=== PATIENT | male | born 1975 | race Caucasian/White ===

== ENCOUNTER 2024-05-25 11:55 | Outpatient (AMB) | payer OTHER, MEDICAID, SELFPAY ==
--- NOTE | 2024-05-25 11:57 | MHC.PC.OV ---
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 Needs referral to neurologist so he can get his license back. 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 ?? Prior PCP:?Dr Perez Last office visit/CPE:? > 1 yr Acute issue(s):? TBI x7 and h/o seizures. Had a neurologist Dr Russell. No seizure in past 3 yrs ?? PMHx:? TBI, Seizures. Amblyopia, Vision deficits, Asthma, Bradycardia, GERD SurgHx:? Eye muscle surgeries. Andenoids. R knee arthroscopy. L knee surgery. FHx:? Mom: HypoThyroid, Arrythmia, Asthma. Dad: HLD, DM2. GF: Colon CA. GM: Throat CA SocHx:? Nonsmoker. EtOH: Rarely 1 drink. MJ Daily. PFSH Surgical History (Updated 05/25/24 @ 12:38 by Boogie Winters) History of right knee surgery Family History (Updated 05/25/24 @ 12:24 by Maria Ines Terrell CMA) Other FH: mental illness Substance use Social History (Updated 05/25/24 @ 12:06 by Maria Ines Terrell CMA) Housing: House Patient Tobacco Use Status: Never used Tobacco e-Cigarette/Vaping Use: Never Used Second Hand Smoke Exposure: No Substance Use Type: Marijuana service: No Current occupational status: disabled Cognitive needs: Yes (had seven brain injuries) Hearing needs: No Vision needs: Yes (legally blind in right eye) Questionnaire PHQ-9 Over the last 2 weeks, how often have you been bothered by any of the following problems? 1. Little interest or pleasure in doing things: not at all 2. Feeling down, depressed, or hopeless: several days 3. Trouble falling or staying asleep, or sleeping too much: not at all 4. Feeling tired or having little energy: several days 5. Poor appetite or overeating: several days 6. Feeling bad about yourself - or that you are a failure or have let yourself or your family down: not at all 7. Trouble concentrating on things, such as reading the newspaper or watching television: not at all 8. Moving or speaking so slowly that other people could have noticed. Or the opposite - being so fidgety or restless that you have been moving around a lot more than usual: not at all 9. Thoughts that you would be better off or of hurting yourself in some way: not at all Total score: 3 Depression Screening Interpretation: Positive Depression Screening Done: Yes 06494 - PHQ-9 Billing: Yes Source: Developed by Drs. Wilfrid Easton, Maria M Rodriges, Mynor Bautista and colleagues, with an educational asaf from [employer]. Thrive Questionnaire Date Thrive assessed: 05/25/24 I am a: Patient What is your living situation today?: I have a steady place to live Within the past 12 months, did the food you bought not last and you didn't have the money to get more?: Never true Within the past 12 months, did you worry whether your food would run out before you got money to buy more?: Never true Do you have trouble paying for medicines?: No Do you have trouble getting transportation to medical appointments?: No Do you have trouble paying your heating and electricity bill?: No Do you have trouble taking care of your child, family member or friend?: No Do you have trouble with day-to-day activities such as bathing, preparing meals, shopping, managing finances, etc.?: No Are you currently unemployed and looking for a job?: No Are you interested in more education?: No Please select the resources that you would like help with: None Currently or been in a relationship where the following occur: No concerns reported THRIVE Score: 0 AUDIT C Alcohol Use Questionnaire (AUDIT-C) 1. How often do you have a drink containing alcohol?: Monthly or less 2. How many drinks containing alcohol do you have on a typical day when you are drinking?: 1 or 2 3. How often do you have six or more drinks on one occasion?: Never Total Score: 1 BRY-7 AMB Questionnaire BRY-7 Date BRY - 7 assessed: 05/25/24 Feeling nervous, anxious, or on edge: 1 = Several days Not being able to stop or control worryin = Not at all Worrying too much about different things: 1 = Several days Trouble relaxin = Several days Being so restless that it is hard to sit still: 0 = Not at all Becoming easily annoyed or irritable: 1 = Several days Feeling afraid as if something awful might happen: 0 = Not at all Total BRY-7 score (0-4 normal; 5-9 mild; 10-14 moderate; 15-21 severe): 4 Source: Developed by Drs. Wilfrid Easton, Maria M Rodriges, Mynor Bautista and colleagues, with an educational asaf from [employer]. BRY-7 Assessment Billing BRY-7 Assessment Tool: BRY-7 Assessment 75180 Review of Systems Const Denies chills, Denies fatigue, Denies fever(s), Denies headache(s) and Denies weakness ENT Denies dizziness and Denies headache(s) Card Denies chest pain, Denies lightheadedness, Denies dyspnea and Denies other (Palpitations) Resp Denies cough, Denies dyspnea, Denies wheezing and Denies other ( shortness of breath) Musc Denies numbness and Denies tingling Neuro Denies dizziness, Denies headache(s), Denies numbness, Denies tingling, Denies paresthesias and Denies weakness Psych Denies anxiety and Denies depression Endo Denies fatigue Aller/Immun Denies wheezing Physical exam (Primary Care) Vital Signs: Last Vital Signs Temp 98.1 F 05/25/24 12:07 Pulse 50 05/25/24 12:07 Resp 14 05/25/24 12:07 BP 112/78 05/25/24 12:07 Pulse Ox 98 05/25/24 12:07 Oxygen Delivery Method Room Air 05/25/24 12:07 BMI result Body Mass Index 30.6 Tobacco/Smoking Status: Tobacco use Status Tobacco use date assessed 05/25/24 05/25/24 12:10 Patient Tobacco Use Status Never used Tobacco 05/25/24 12:10 e-Cigarette/Vaping Use Never Used 05/25/24 12:10 PHQ-9: PHQ-9 Score PHQ-9: Total score 3 05/25/24 12:23 Depression Screening Interpretation: Positive Thrive Assessment: Date of Thrive Assessment Date Thrive assessed 05/25/24 05/25/24 12:23 Currently or been in a relationship where the following occur: No concerns reported Const General: no acute distress and well developed Nutritional Appearance: well nourished Orientation/consciousness: patient oriented x3 HENMT Head: Yes normocephalic and Yes atraumatic Eyes General: appearance normal, both eyes and all related structures Pupils: Equal, round and reactive pupils present EOM: EOMs intact bilaterally Resp Effort & Inspection: normal respiratory effort Auscultation: clear to auscultation bilaterally Cardio Rate: regular rate Rhythm: regular rhythm Heart sounds: S1 normal heart sound present, S2 normal heart sound present, no gallops, no murmurs and no rubs Neuro General: patient oriented x3 and gait normal Cranial nerves: Yes Equal, round and reactive pupils present Psych Affect: normal affect Assessment and Plan Assessment & Plan (1) Seizures: Code(s): R56.9 - Unspecified convulsions Plan: History?of?traumatic?brain?injury?and?seizures. 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 (2) History of traumatic brain injury: Code(s): Z87.820 - Personal history of traumatic brain injury Plan: As?above (3) GERD (gastroesophageal reflux disease): Code(s): K21.9 - Gastro-esophageal reflux disease without esophagitis Plan: Refilled?omeprazole Referred?to?Gastroenterology (4) Asthma: Code(s): J45.909 - Unspecified asthma, uncomplicated Plan: Mild?intermittent?asthma Sent?script?for?Ventolin?which?he?can?use?as?needed (5) Screening for colon cancer: Code(s): Z12.11 - Encounter for screening for malignant neoplasm of colon Plan: As?above,?referred?to?GI (6) Laboratory exam ordered as part of routine general medical examination: Code(s): Z00.00 - Encounter for general adult medical examination without abnormal findings Plan: Check?labs Orders: Orders Comprehensive Walker. Panel Fast Today Z00.00 - Encounter for general adult medical examination without abnormal findings Microalbumin, Random (w Creat) Today I10 - Essential (primary) hypertension Prostate Specific Antigen Scr Today Z12.5 - Encounter for screening for malignant neoplasm of prostate TSH reflex Free T4 Today Z00.00 - Encounter for general adult medical examination without abnormal findings Complete Blood Count Auto Diff Today Z00.00 - Encounter for general adult medical examination without abnormal findings Lipid Panel Today Z00.00 - Encounter for general adult medical examination without abnormal findings UA and rflx microscopic Today Z00.00 - Encounter for general adult medical examination without abnormal findings Vitamin B12 and Folate Today E53.8 - Deficiency of other specified B group vitamins Referrals Neurology Referral R56.9 - Unspecified convulsions Gastroenterology Referral K21.9 - Gastro-esophageal reflux disease without esophagitis, Z12.11 - Encounter for screening for malignant neoplasm of colon Medications: New albuterol sulfate 90 mcg/actuation (Ventolin HFA) 2 puffs inhalation Q4-6H 30 days PRN 8.5 grams 3RF shortness of breath or wheezing omeprazole 20 mg PO DAILY 90 days 90 caps 3RF Coding Level of Care Code New Pt Level 3 (67589) Diagnoses Seizures R56.9 History of traumatic brain injury Z87.820 GERD (gastroesophageal reflux disease) K21.9 Asthma J45.909 Screening for colon cancer Z12.11 Laboratory exam ordered as part of routine general medical examination Z00.00 Additional Codes BRY-7 Assessment Billing - BRY-7 Assessment Tool: BRY-7 Assessment 38956 ([id number])
[2024-05-25 12:07] VITALS: BP 112/78; PULSE 50; RESP 14; TEMP 36.7; O2SAT 98; BMI 30.6
== END 2024-05-25 12:47 | disposition home or self-care (01) ==
PROVIDERS: PCP Family Medicine; Visit Provider Family Medicine
DX: R56.9 Unspecified convulsions (principal); Z87.820 Personal history of traumatic brain injury; K21.9 Gastro-esophageal reflux disease without esophagitis; J45.909 Unspecified asthma, uncomplicated; Z12.11 Encounter for screening for malignant neoplasm of colon
CPT/HCPCS: 99203

== ENCOUNTER 2024-05-25 12:50 | Outpatient (REF) | payer OTHER, MEDICAID, SELFPAY ==
[2024-05-25 14:03] LABS: MANUAL DIFF FLAG NO
[2024-05-25 14:07] LABS: Appearance Urine Clear; Basophils Percent Auto 0.3 % (0-2); Color Urine Yellow; Eosinophils Absolute Auto 0.1 X10*3/uL (0.0-0.4); Eosinophils Percent Auto 2.4 % (0-4); Glucose Urine UA Negative (Negative); Hematocrit 44.6 % (42.0-52.0); Hemoglobin 15.4 g/dl (14.0-18.0); Imm Gran Abs Auto 0.01 X10*3/uL (0.00-0.03); Imm Gran Pct Auto 0.3 % (0.0-0.4); Leukocyte Esterase Urine Negative (Negative); Lymphocytes Percent Auto 25.1 % (20-40); Mean Corpuscular HGB Conc 34.5 g/dl (31.0-36.0); Mean Corpuscular Volume 92.7 fL (80.0-98.0); Mean Platelet Volume 10.9 fL (9.4-12.4); Monocytes Absolute Auto 0.4 X10*3/uL (0.1-1.2); Monocytes Percent Auto 10.3 % (2-11); Neutrophils Absolute Auto 2.3 x10*3/uL (2.0-8.3); Neutrophils Percent Auto 61.6 % (45-73); Nitrite Urine Negative (Negative); Platelet Count 248 X10*3/uL (160-400); Red Blood Count 4.81 X10*6/uL (4.60-5.80); Red Cell Distribution Width 12.7 % (11.0-16.0); Specific Gravity - Urine 1.025 (1.005-1.025); Urine Blood Negative (Negative); Urine Ketones Negative (Negative); Urine Protein Negative (Neg-Trace); White Blood Count 3.8 X10*3/uL (4.8-10.8)
[2024-05-25 14:36] LABS: Creatinine Urine 253.05 mg/dL; Microalbum/Creatinine Ratio Ur 3.1 ug/mg cr (<30)
[2024-05-25 14:42] LABS: Alanine Aminotransferase 22 U/L (0-40); Albumin Level 4.6 g/dL (3.5-5.0); Alkaline Phosphatase 62 U/L (39-117); Anion Gap 17 (12-20); Aspartate Amino Transferase 18 U/L (5-37); Bilirubin Total 1.2 mg/dL (0.0-1.0); Blood Urea Nitrogen 15 mg/dL (9-16); Calcium 9.6 mg/dL (8.4-10.2); Carbon Dioxide 21 mmol/L (22-29); Chloride 106 mmol/L (96-108); Cholesterol 155 mg/dL (<200); Estimated Glomerular Filt Rate > 60; Glucose Fasting 101 mg/dL (60-99); HDL Cholesterol 38 mg/dL (>40); LDL Cholesterol Calculated 105 mg/dL (<100); Potassium 3.8 mmol/L (3.3-5.1); Sodium 140 mmol/L (135-145); Total Protein 8.1 g/dL (6.5-8.0); Triglycerides 62 mg/dL (<150)
[2024-05-25 14:51] LABS: TSH reflex Free T4 0.79 uIU/mL (0.32-4.0)
[2024-05-25 15:05] LABS: Folate 5.4 ng/mL (> or = 4.0); Prostate Specific Antigen Scr 0.94 ng/mL (<0.05-4.0); Vitamin B12 424 pg/mL (200-900)
== END 2024-05-25 12:51 | disposition home or self-care (01) ==
LOC: HO.WFDLDS 12:50
PROVIDERS: Visit Provider Family Medicine
DX: Z00.00 Encounter for general adult medical examination without abnormal findings (principal); I10 Essential (primary) hypertension; E53.8 Deficiency of other specified B group vitamins; Z12.5 Encounter for screening for malignant neoplasm of prostate
CPT/HCPCS: 36415; 80053; 80061; 81003; 82043; 82570; 82607; 82746; 84153; 84443; 85025

== ENCOUNTER 2024-09-02 10:40 | Outpatient (AMB) | payer OTHER, MEDICAID, SELFPAY ==
--- NOTE | 2024-09-02 10:47 | MHC.PC.OV ---
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 30 mins Intake Note: Physical Allergies pneumococcal vaccine Allergy (Verified 09/02/24 10:48) Cystitis Tobacco use date assessed: 05/25/24 Dental Screening Dental Screen Date: 05/25/24 HPI HPI Comments History of Present Illness Details This is a 48-year-old male with a past medical history of TBI and seizures presenting for his physical exam. His primary care provider is Dr. Moar. Dr. Mora referred him to Neurology in May. There are messages that Dr. Ardon reviewed the request, and since he has not had a seizure in over 3 years he does not need to be seen. Dr. Mora wrote that with the notes on this from Neurology he would be able to consider clearing him to drive. The patient is going to obtain the form from the [employer] and schedule a visit with his primary care physician to review it. Patient says last tetanus immunization was over 10 years. Administered Tdap and influenza vaccine today. Patient reports developing cellulitis after pneumococcal vaccine in the past. He will get the COVID booster at his pharmacy. He has an appointment scheduled for colonoscopy. Patient's heart rate is 50 today which is stable from his last visit. Patient says he has chronic bradycardia, and he had multiple Holter monitors with benign findings. Denies syncope, palpitations, dizziness, fatigue. Records transfer still pending. We reviewed his lab work from 05/22/2024. White blood cell count was mildly decreased. He will repeat this today. ROS: Constitutional: No unexplained weight loss, fever, chills, fatigue or night sweats. Eyes: No vision changes, blurry vision, double vision, eye pain, eye redness, eye discharge. ENT: No hearing loss, sneezing, congestion, runny nose or sore throat. Respiratory: No shortness of breath, cough or sputum production. Cardiovascular: No chest pain, chest pressure or chest discomfort. No palpitations or pedal edema. Gastrointestinal: No anorexia, nausea, vomiting or diarrhea. No abdominal pain or blood in stool. Genitourinary: No dysuria, hematuria, urinary frequency. No testicular masses, scrotal pain or swelling. Neurologic: No headache, dizziness, syncope, unilateral weakness, ataxia, numbness or tingling in the extremities. Musculoskeletal: No muscle pain, back pain, joint pain or swelling. Hematologic/Lymphatics: No bleeding or bruising. No painful lymph nodes. Skin: No rash or itching. Endocrine: No cold or heat intolerance. No polyuria or polydipsia. Psychiatric: No depression or anxiety. No SI/HI. Physical exam: Constitutional: Alert, in no distress. Head: Normocephalic. Eyes: Pupils are equal, round and reactive to light. Extraocular muscles intact. Ear, Nose and Throat: Canals clear. TMs normal. Normal nasal mucosa. No nasal discharge. No oral lesions. Neck: Supple, Full range of motion. No lymphadenopathy. No palpable thyroid masses. Respiratory: Clear to auscultation. Cardiovascular: S1 S2 regular. No murmurs. No carotid bruits. Gastrointestinal: Abdomen soft, non-tender, non-distended. Normal bowel sounds. No palpable masses. Genitourinary: Deferred. Neurologic: No focal neurological deficits. Symmetric patellar reflexes. Moves all extremities spontaneously. Sensation intact bilaterally. Skin: No rashes Musculoskeletal: No gross deformities. Normal range of motion. Extremities: Warm and well perfused. No clubbing, cyanosis or edema. 3+ peripheral pulses bilaterally. Psychiatric: Normal mood and affect COUNTS INCLUDE 234 BEDS AT [facility] Medical History (Updated 09/02/24 @ 11:41 by CASTRO Valladares) Bradycardia Surgical History (Updated 05/25/24 @ 12:38 by Boogie Winters) History of right knee surgery Family History (Updated 05/25/24 @ 12:24 by Maria Ines Terrell CMA) Other FH: mental illness Substance use Social History (Updated 09/02/24 @ 10:48 by Maria Ines Terrell CMA) Housing: House Patient Tobacco Use Status: Never used Tobacco e-Cigarette/Vaping Use: Never Used Second Hand Smoke Exposure: No Use of substances other than those prescribed or required for medical reasons: Yes Substance Use Type: Marijuana service: No Current occupational status: disabled Cognitive needs: Yes (had seven brain injuries) Hearing needs: No Vision needs: Yes (legally blind in right eye) Questionnaire PHQ-9 Over the last 2 weeks, how often have you been bothered by any of the following problems? 1. Little interest or pleasure in doing things: not at all 2. Feeling down, depressed, or hopeless: not at all 3. Trouble falling or staying asleep, or sleeping too much: several days 4. Feeling tired or having little energy: several days 5. Poor appetite or overeating: several days 6. Feeling bad about yourself - or that you are a failure or have let yourself or your family down: not at all 7. Trouble concentrating on things, such as reading the newspaper or watching television: not at all 8. Moving or speaking so slowly that other people could have noticed. Or the opposite - being so fidgety or restless that you have been moving around a lot more than usual: not at all 9. Thoughts that you would be better off or of hurting yourself in some way: not at all Total score: 3 Depression Screening Interpretation: Negative Depression Screening Done: Yes 54427 - PHQ-9 Billing: Yes Source: Developed by Drs. Wilfrid Easton, Maria M Rodriges, Mynor Bautista and colleagues, with an educational asaf from [employer]. Thrive Questionnaire Date Thrive assessed: 09/02/24 I am a: Patient What is your living situation today?: I have a steady place to live Within the past 12 months, did the food you bought not last and you didn't have the money to get more?: Never true Within the past 12 months, did you worry whether your food would run out before you got money to buy more?: Never true Do you have trouble paying for medicines?: Yes Do you have trouble getting transportation to medical appointments?: No Do you have trouble paying your heating and electricity bill?: No Do you have trouble taking care of your child, family member or friend?: No Do you have trouble with day-to-day activities such as bathing, preparing meals, shopping, managing finances, etc.?: No Are you currently unemployed and looking for a job?: No Are you interested in more education?: No Please select the resources that you would like help with: None Currently or been in a relationship where the following occur: No concerns reported THRIVE Score: 0 AUDIT C Alcohol Use Questionnaire (AUDIT-C) 1. How often do you have a drink containing alcohol?: Monthly or less 2. How many drinks containing alcohol do you have on a typical day when you are drinking?: 1 or 2 3. How often do you have six or more drinks on one occasion?: Never Total Score: 1 BRY-7 AMB Questionnaire BRY-7 Date BRY - 7 assessed: 05/25/24 Feeling nervous, anxious, or on edge: 1 = Several days Not being able to stop or control worryin = Not at all Worrying too much about different things: 0 = Not at all Trouble relaxin = Several days Being so restless that it is hard to sit still: 1 = Several days Becoming easily annoyed or irritable: 0 = Not at all Feeling afraid as if something awful might happen: 0 = Not at all Total BRY-7 score (0-4 normal; 5-9 mild; 10-14 moderate; 15-21 severe): 3 Source: Developed by Drs. Wilfrid Easton, Maria M Rodriges, Mynor Bautista and colleagues, with an educational asaf from [employer]. BRY-7 Assessment Billing BRY-7 Assessment Tool: BRY-7 Assessment 86946 Physical exam (Primary Care) Vital Signs: Last Vital Signs Pulse 50 09/02/24 11:36 Resp 12 09/02/24 10:48 BP 122/74 09/02/24 10:48 Pulse Ox 97 09/02/24 10:48 Oxygen Delivery Method Room Air 09/02/24 10:48 BMI result Body Mass Index 31.2 Tobacco/Smoking Status: Tobacco use Status Tobacco use date assessed 05/25/24 09/02/24 10:51 Patient Tobacco Use Status Never used Tobacco 09/02/24 10:51 e-Cigarette/Vaping Use Never Used 09/02/24 10:51 PHQ-9: PHQ-9 Score PHQ-9: Total score 3 09/02/24 11:26 Depression Screening Interpretation: Negative Thrive Assessment: Date of Thrive Assessment Date Thrive assessed 09/02/24 09/02/24 10:51 Currently or been in a relationship where the following occur: No concerns reported Coding Level of Care Code Est Pt Prev Care 40-64y(22706) Diagnoses Routine physical examination Z00.00 Additional Codes BRY-7 Assessment Billing - BRY-7 Assessment Tool: BRY-7 Assessment 96970 ([id number]) Assessment & Plan Assessment & Plan (1) Routine physical examination: Code(s): Z00.00 - Encounter for general adult medical examination without abnormal findings Plan: Patient is seen today for a routine physical. As part of this visit we reviewed the following issues, which are considered and essential part of preventative health in this age group: - Testicular cancer screening, which includes self exam teaching - Screening for colon cancer - Discussed Prostate cancer screening - Blood pressure screening annually - Cholesterol screening - Nutritional and exercise counseling - Counseling of injury prevention including fire prevention, smoke alarms and seat belt usage - Screening for depression - Prevention of and/or testing for infectious diseases - Education about skin cancer - Recommendations about immunizations - Recommendation of an eye exam - Screening for substance abuse Plan Patient will call to schedule follow up with PCP for form completion. Orders: Orders Complete Blood Count Auto Diff Today D72.819 - Decreased white blood cell count, unspecified Influenza [id number] Immunization Today Z23 - Encounter for immunization TDaP Immunization Today Z23 - Encounter for immunization Medications: New Fluarix Triv [id number] (PF) (flu vacc [id number] 6mos up(PF)) 0.5 mL IM ONCE 0.5 mL 0RF NS Z23 - Encounter for immunization Boostrix Tdap (diphth,pertus(acell),tetanus) 0.5 mL IM ONCE 0.5 mL 0RF NS Z23 - Encounter for immunization
[2024-09-02 10:48] VITALS: BP 122/74; PULSE 49; RESP 12; O2SAT 97; BMI 31.2
[2024-09-02 11:36] VITALS: PULSE 50
== END 2024-09-02 12:02 | disposition home or self-care (01) ==
LOC: HO.HMCFM 10:40
PROVIDERS: PCP Family Medicine; Visit Provider Physician Assistant Medical
DX: Z00.00 Encounter for general adult medical examination without abnormal findings (principal); Z23 Encounter for immunization

== ENCOUNTER → 2024-09-02 10:40 | Outpatient (BNVA) | payer OTHER, MEDICAID, SELFPAY | PROVIDERS: PCP Family Medicine; Visit Provider Physician Assistant Medical | DX: Z00.00 Encounter for general adult medical examination without abnormal findings (principal); Z23 Encounter for immunization; Z87.820 Personal history of traumatic brain injury | CPT/HCPCS: 90471; 90656; 90715; 96127; 99396 ==

== ENCOUNTER 2025-07-29 08:42 | Outpatient (AMB) | payer OTHER, MEDICAID, SELFPAY ==
--- NOTE | 2025-07-29 08:50 | A.OFFPC_ITS ---
Vital Signs 07/29/25 08:53 Height 5 ft 5.94 in Weight 138 lb 6 oz BMI 22.4 BP 122/76 Blood Pressure Location Rt brachial Position Sitting Respiration 14 Pulse 57 Pulse Source Pulse Oximeter Temp 98.5 F Temp Source Oral Pulse Oximetry (%) 97 Oxygen Delivery Method Room Air Intake Visit Reasons: Back Pain Intake Note: Lower back pain. Slide Developer Required: No Allergies pneumococcal vaccine Allergy (Verified 07/29/25 08:51) Cystitis Tobacco use date assessed: 07/29/25 Dental Screening Dental Screen Date: 07/29/25 Did you have a dental visit in the last 12 months?: No Did you have a dental problem in the last 6 months where you did not have access to dental care?: No Was dental information given to patient?: Patient declined (has false teeth) HPI Back Pain HPI Details 49 y/o male presents today with complain ts of back pain. Reports low back pain. Radiates to buttocks and lateral hips bilaterally. Notes hx of seizures. HPI Comments History of Present Illness Details Documentation assistance for Marin Mora MD, was provided by Boogie Winters, [employer] on 07/29/2025 at 9:32 AM EST. I, Dr. Mora, have read, observed, and verified documentation. 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 1. Little interest or pleasure in doing things: not at all 2. Feeling down, depressed, or hopeless: not at all 3. Trouble falling or staying asleep, or sleeping too much: not at all 4. Feeling tired or having little energy: not at all 5. Poor appetite or overeating: not at all 6. Feeling bad about yourself - or that you are a failure or have let yourself or your family down: not at all 7. Trouble concentrating on things, such as reading the newspaper or watching television: not at all 8. Moving or speaking so slowly that other people could have noticed. Or the opposite - being so fidgety or restless that you have been moving around a lot more than usual: not at all 9. Thoughts that you would be better off or of hurting yourself in some way: not at all Total score: 0 Depression Screening Interpretation: Negative Depression Screening Done: Yes 19948 - PHQ-9 Billing: Yes Source: Developed by Drs. Wilfrid Easton, Maria M Rodriges, Mynor Bautista and colleagues, with an educational asaf from [employer] Thrive Questionnaire Date Thrive assessed: 07/29/25 I am a: Patient What is your living situation today?: I have a steady place to live Within the past 12 months, did the food you bought not last and you didn't have the money to get more?: Often true Within the past 12 months, did you worry whether your food would run out before you got money to buy more?: Often true Do you have trouble paying for medicines?: Yes Do you have trouble getting transportation to medical appointments?: Yes Do you have trouble paying your heating and electricity bill?: No Do you have trouble taking care of your child, family member or friend?: No Do you have trouble with day-to-day activities such as bathing, preparing meals, shopping, managing finances, etc.?: No Are you currently unemployed and looking for a job?: No Are you interested in more education?: No Please select the resources that you would like help with: None Currently or been in a relationship where the following occur: I choose not to answer THRIVE Score: 3 AUDIT C Alcohol Use Questionnaire (AUDIT-C) 1. How often do you have a drink containing alcohol?: Monthly or less 2. How many drinks containing alcohol do you have on a typical day when you are drinking?: 1 or 2 3. How often do you have six or more drinks on one occasion?: Never Total Score: 1 BRY-7 AMB Questionnaire BRY-7 Date BRY - 7 assessed: 07/29/25 Feeling nervous, anxious, or on edge: 0 = Not at all Not being able to stop or control worryin = Not at all Worrying too much about different things: 0 = Not at all Trouble relaxin = Not at all Being so restless that it is hard to sit still: 0 = Not at all Becoming easily annoyed or irritable: 0 = Not at all Feeling afraid as if something awful might happen: 0 = Not at all Total BRY-7 score (0-4 normal; 5-9 mild; 10-14 moderate; 15-21 severe): 0 Source: Developed by Drs. Wlifrid Easton, Maria M Rodriges, Mynor Bautista and colleagues, with an educational asaf from [employer] BRY-7 Assessment Billing BRY-7 Assessment Tool: BRY-7 Assessment 58077 Review of Systems Const Denies chills, Denies fatigue, Denies fever(s), Denies headache(s) and Denies weakness ENT Denies dizziness and Denies headache(s) Card Denies dyspnea Resp Denies cough, Denies dyspnea, Denies wheezing and Denies other (shortness of breath) Musc Reports back pain, Denies numbness and Denies tingling Neuro Denies dizziness, Denies headache(s), Denies numbness, Denies tingling and Denies weakness Psych Denies anxiety and Denies depression Endo Denies fatigue Aller/Immun Denies wheezing Physical exam (Primary Care) Vital Signs: Last Vital Signs Temp 98.5 F 07/29/25 08:53 Pulse 57 07/29/25 08:53 Resp 14 07/29/25 08:53 BP 122/76 07/29/25 08:53 Pulse Ox 97 07/29/25 08:53 Oxygen Delivery Method Room Air 07/29/25 08:53 BMI result Body Mass Index 22.4 Tobacco/Smoking Status: Tobacco use Status Tobacco use date assessed 07/29/25 07/29/25 08:55 Patient Tobacco Use Status Never used Tobacco 07/29/25 08:55 e-Cigarette/Vaping Use Never Used 07/29/25 08:55 PHQ-9: PHQ-9 Score PHQ-9: Total score 0 07/29/25 08:55 Depression Screening Interpretation: Negative Thrive Assessment: Date of Thrive Assessment Date Thrive assessed 07/29/25 07/29/25 08:55 Currently or been in a relationship where the following occur: I choose not to answer Const General: well developed; No acute distress Nutritional Appearance: well nourished Orientation/consciousness: patient oriented x3 HENMT Head: Yes normocephalic and Yes atraumatic Eyes General: appearance normal, both eyes and all related structures Pupils: Equal, round and reactive pupils present EOM: EOMs intact bilaterally Resp Effort & Inspection: normal respiratory effort Neuro General: patient oriented x3 and gait normal Cranial nerves: Yes Equal, round and reactive pupils present Psych Affect: normal affect Coding Level of Care Code Est Pt Level 3 (89370) Diagnoses Low back pain M54.50 Seizures R56.9 Additional Codes BRY-7 Assessment Billing - BRY-7 Assessment Tool: BRY-7 Assessment 45244 ([id number]) PHQ-9 - 18435 - PHQ-9 Billing: Yes ([id number]) Assessment & Plan Assessment & Plan (1) Low back pain: Code(s): M54.50 - Low back pain, unspecified Category: Medical Plan: Low back pain which radiates into buttocks and lateral hips, bilaterally. Likely recurrent muscle strains. Will give him a script for cyclobenzaprine and he can increase naproxen to about 440 mg b.i.d.. Ice/heat Physical therapy If not improving will consider imaging or referral (2) Seizures: Code(s): R56.9 - Unspecified convulsions Category: Medical Plan: History of seizures and was followed by Dr. Rodrigo Giang, neurology. He would like a referral to discuss re-evaluation. He is trying to get his license back. Orders: Referrals Neurology Referral R56.9 - Unspecified convulsions, Z87.820 - Personal history of traumatic brain injury
[2025-07-29 08:53] VITALS: BP 122/76; PULSE 57; RESP 14; TEMP 36.9; O2SAT 97; BMI 22.4
== END 2025-07-29 09:32 | disposition home or self-care (01) ==
LOC: HO.HMCFM 08:43
PROVIDERS: PCP Family Medicine; Visit Provider Family Medicine
DX: M54.50 Low back pain, unspecified (principal); R56.9 Unspecified convulsions

== ENCOUNTER → 2025-07-29 08:42 | Outpatient (BNVA) | payer OTHER, SELFPAY | PROVIDERS: PCP Family Medicine; Visit Provider Family Medicine | DX: M54.50 Low back pain, unspecified (principal); R56.9 Unspecified convulsions; Z87.820 Personal history of traumatic brain injury | CPT/HCPCS: 96127; 99212 ==

== ENCOUNTER 2025-09-05 08:46 | Outpatient (AMB) | payer OTHER, MEDICAID, SELFPAY ==
--- NOTE | 2025-09-05 08:49 | A.OFFPC_ITS ---
Vital Signs 09/05/25 08:55 Height 5 ft 5.94 in Weight 198 lb 8 oz BMI 32.1 BP 110/80 Blood Pressure Location Rt brachial Position Sitting Respiration 16 Pulse 57 Pulse Source Pulse Oximeter Temp 98.5 F Temp Source Oral Pulse Oximetry (%) 97 Oxygen Delivery Method Room Air Intake Visit Reasons: physical exam Intake Note: patient is scheduled for an annual physical patient was unable to complete labs will get them done after visit today. 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 Allergies pneumococcal vaccine Allergy (Verified 09/05/25 08:52) Cystitis Medication List - Last Reconciled 09/05/25 by Marin Mora MD albuterol sulfate 90 mcg/actuation (Ventolin HFA) 2 puffs inhalation Q4-6H PRN 30 days cyclobenzaprine 10 mg PO BID PRN 10 days omeprazole 20 mg PO DAILY 90 days Tobacco use date assessed: 09/05/25 Dental Screening Dental Screen Date: 09/05/25 Did you have a dental visit in the last 12 months?: No Did you have a dental problem in the last 6 months where you did not have access to dental care?: No Was dental information given to patient?: No HPI physical exam HPI0 Details 49 y/o male presents for a CPE with f/u labs and health maint. No recent labs to review. Denies any significant weight changes. Pt notes 07/29/25 visit's weight check is a mistake - it is listed 138 lbs but he is 198 lbs. Reports he has been using NSAIDs and tylenol for pain from arthritis. HPI Comments History of Present Illness Details Documentation assistance for Marin Mora MD, was provided by Boogie Winters, [employer] on 09/05/2025 at 9:08 AM EST. [place], Dr. Mora, have read, observed, and verified documentation. 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 1. Little interest or pleasure in doing things: not at all 2. Feeling down, depressed, or hopeless: several days 3. Trouble falling or staying asleep, or sleeping too much: not at all 4. Feeling tired or having little energy: not at all 5. Poor appetite or overeating: not at all 6. Feeling bad about yourself - or that you are a failure or have let yourself or your family down: not at all 7. Trouble concentrating on things, such as reading the newspaper or watching television: not at all 8. Moving or speaking so slowly that other people could have noticed. Or the opposite - being so fidgety or restless that you have been moving around a lot more than usual: nearly every day 9. Thoughts that you would be better off or of hurting yourself in some way: not at all Total score: 4 Depression Screening Interpretation: Negative Depression Screening Done: Yes 49560 - PHQ-9 Billing: Yes Source: Developed by Drs. Wilfrid Easton, Maria M Rodriges, Mynor Bautista and colleagues, with an educational asaf from [employer]. Thrive Questionnaire Date Thrive assessed: 09/05/25 I am a: Patient What is your living situation today?: I have a steady place to live Within the past 12 months, did the food you bought not last and you didn't have the money to get more?: Often true Within the past 12 months, did you worry whether your food would run out before you got money to buy more?: Often true Do you have trouble paying for medicines?: Yes Do you have trouble getting transportation to medical appointments?: Yes Do you have trouble paying your heating and electricity bill?: No Do you have trouble taking care of your child, family member or friend?: No Do you have trouble with day-to-day activities such as bathing, preparing meals, shopping, managing finances, etc.?: No Are you currently unemployed and looking for a job?: No Are you interested in more education?: No Please select the resources that you would like help with: None Currently or been in a relationship where the following occur: I choose not to answer THRIVE Score: 3 AUDIT C Alcohol Use Questionnaire (AUDIT-C) 1. How often do you have a drink containing alcohol?: Monthly or less 2. How many drinks containing alcohol do you have on a typical day when you are drinking?: 1 or 2 3. How often do you have six or more drinks on one occasion?: Never Total Score: 1 Score Reviewed/Action Taken: Yes BRY-7 AMB Questionnaire BRY-7 Date BRY - 7 assessed: 09/05/25 Feeling nervous, anxious, or on edge: 2 = More than half the days Not being able to stop or control worryin = Not at all Worrying too much about different things: 2 = More than half the days Trouble relaxin = Not at all Being so restless that it is hard to sit still: 0 = Not at all Becoming easily annoyed or irritable: 0 = Not at all Feeling afraid as if something awful might happen: 0 = Not at all Total BRY-7 score (0-4 normal; 5-9 mild; 10-14 moderate; 15-21 severe): 4 Source: Developed by Drs. Wilfrid Easton, Maria M Rodriges, Mynor Bautista and colleagues, with an educational asaf from [employer]. BRY-7 Assessment Billing BRY-7 Assessment Tool: BRY-7 Assessment 45582 Review of Systems Const Denies chills, Denies fatigue, Denies fever(s), Denies headache(s) and Denies weakness Eyes Denies change in vision ENT Denies dizziness, Denies headache(s), Denies hearing loss, Denies nasal congestion, Denies sinus pain, Denies sinus pressure and Denies sore throat Card Denies chest pain, Denies lightheadedness, Denies dyspnea and Denies other (palpitations) Resp Denies cough, Denies dyspnea and Denies wheezing GI Denies abdominal pain, Denies melena, Denies hematochezia, Denies change in bowel habits, Denies dyspepsia and Denies nausea Denies hematuria and Denies dysuria Musc Denies abnormal gait, Denies myalgias, Denies arthralgias, Denies numbness and Denies tingling Skin/Breast Denies rash, Denies unusual bruising and Denies wounds Neuro Denies abnormal gait, Denies dizziness, Denies headache(s), Denies memory loss, Denies numbness, Denies Sensory deficit (Neuro), Denies tingling and Denies weakness Psych Denies anxiety, Denies depression and Denies memory loss Endo Denies cold intolerance, Denies fatigue, Denies heat intolerance, Denies polydipsia and Denies polyuria Ramos/Lymph Denies easy bleeding and Denies easy bruising Aller/Immun Denies wheezing Physical exam (Primary Care) Vital Signs: Last Vital Signs Temp 98.5 F 09/05/25 08:55 Pulse 57 09/05/25 08:55 Resp 16 09/05/25 08:55 BP 110/80 09/05/25 08:55 Pulse Ox 97 09/05/25 08:55 Oxygen Delivery Method Room Air 09/05/25 08:55 BMI result Body Mass Index 32.1 Tobacco/Smoking Status: Tobacco use Status Tobacco use date assessed 09/05/25 09/05/25 08:57 Patient Tobacco Use Status Never used Tobacco 09/05/25 08:51 e-Cigarette/Vaping Use Never Used 09/05/25 08:51 PHQ-9: PHQ-9 Score PHQ-9: Total score 4 09/05/25 08:57 Depression Screening Interpretation: Negative Thrive Assessment: Date of Thrive Assessment Date Thrive assessed 09/05/25 09/05/25 08:57 Currently or been in a relationship where the following occur: I choose not to answer Const General: no acute distress, well developed, alert and awake Nutritional Appearance: well nourished Orientation/consciousness: patient oriented x3 HENMT Head: Yes normocephalic and Yes atraumatic Ears: hearing grossly normal bilaterally and TM's normal bilaterally General nose exam: Normal external nose present and Normal nares present Mouth: Normal oral and palatal mucosa present and moist mucous membranes Teeth and gingiva: dentition normal Throat: Yes posterior oropharynx normal Eyes General: appearance normal, both eyes and all related structures Pupils: Equal, round and reactive pupils present and Pupil accommodation reflex normal EOM: EOMs intact bilaterally Neck Neck: Yes normal visual inspection, Yes no lymphadenopathy and Yes trachea midline Thyroid: Thyroid normal Carotids: no bruits Lymphatic: no lymphadenopathy noted Chest Chest palpation & inspection: normal inspection of the chest Resp Effort & Inspection: normal respiratory effort Auscultation: clear to auscultation bilaterally Cardio Rate: regular rate Rhythm: regular rhythm Heart sounds: S1 normal heart sound present, S2 normal heart sound present, no gallops, no murmurs and no rubs Bruits: no abdominal aortic bruits and no carotid bruits GI Palpation (GI): No Abdominal aortic bruit present, Soft to palpation, nontender, No hepatosplenomegaly present and No Rebound tenderness present Auscultation: normal bowel sounds General: Yes no CVA tenderness Back/Spine/Pelvis Back: no CVA tenderness Cervical Spine: cervical ROM normal and No Cervical spine tenderness Thoracic/Lumbar Spine: thoraco-lumbar ROM normal, No pain with thoraco-lumbar ROM, No thoracic spinal tenderness and No lumbar spinal tenderness Skin Lesions: no lesions Rashes: no rashes Trauma: no lacerations or abrasions Wounds: no wounds Nails: normal Neuro General: patient oriented x3 Cranial nerves: Yes Equal, round and reactive pupils present Cognition (Neuro): normal cognition Gait exam (Neuro): Normal gait present Motor exam (neuro): 5/5 motor strength present throughout Sensory Exam: No Sensory deficit (Neuro) Deep tendon reflexes (DTR's): Right patellar reflex intensity grade: 2+ and Left patellar reflex intensity grade: 2+ Extrem General: Yes normal to inspection and No edema Psych Appearance: grossly normal Affect: normal affect Attitude: cooperative Thought process: Normal thought process present Coding Level of Care Code Est Pt Level 3 (60042) Est Pt Prev Care 40-64y(23353) Diagnoses Adult general medical exam Z00.00 Screening for prostate cancer Z12.5 Screening for colon cancer Z12.11 Additional Codes BRY-7 Assessment Billing - BRY-7 Assessment Tool: BRY-7 Assessment 56692 ([id number]) PHQ-9 - 04943 - PHQ-9 Billing: Yes ([id number]) Assessment & Plan Assessment & Plan (1) Adult general medical exam: Code(s): Z00.00 - Encounter for general adult medical examination without abnormal findings Category: Medical Plan: 49-year-old male presents for complete physical exam Encouraged healthy diet with active lifestyle and of exercise (2) Screening for prostate cancer: Code(s): Z12.5 - Encounter for screening for malignant neoplasm of prostate Category: Medical Plan: Labs are ordered. Will review with patient at upcoming telemedicine appointment (3) Screening for colon cancer: Code(s): Z12.11 - Encounter for screening for malignant neoplasm of colon Category: Medical Plan: Patient had colonoscopy 5 years ago and was told follow-up in years Up-to-date
[2025-09-05 08:55] VITALS: BP 110/80; PULSE 57; RESP 16; TEMP 36.9; O2SAT 97; BMI 32.1
== END 2025-09-05 09:19 | disposition home or self-care (01) ==
LOC: HO.HMCFM 08:47
PROVIDERS: PCP Family Medicine; Visit Provider Family Medicine
DX: Z00.00 Encounter for general adult medical examination without abnormal findings (principal); Z12.5 Encounter for screening for malignant neoplasm of prostate; Z12.11 Encounter for screening for malignant neoplasm of colon

== ENCOUNTER 2025-09-05 08:46 | Outpatient (REF) | payer OTHER, SELFPAY ==
[2025-09-05 11:26] LABS: Appearance Urine Clear; Glucose Urine UA Negative (Negative); PH 8.0 (5.0-9.0); Specific Gravity - Urine 1.010 (1.005-1.025)
[2025-09-05 12:33] LABS: Alanine Aminotransferase 27 U/L (0-40); Albumin Level 4.4 g/dL (3.5-5.0); Alkaline Phosphatase 73 U/L (39-117); Anion Gap 11 (12-20); Aspartate Amino Transferase 27 U/L (5-37); Blood Urea Nitrogen 11 mg/dL (9-16); Calcium 9.3 mg/dL (8.4-10.2); Carbon Dioxide 27 mmol/L (22-29); Chloride 104 mmol/L (96-108); Cholesterol 147 mg/dL (<200); Estimated Glomerular Filt Rate > 60; HDL Cholesterol 36 mg/dL (>40); Potassium 3.7 mmol/L (3.3-5.1); Sodium 138 mmol/L (135-145); Total Protein 7.8 g/dL (6.5-8.0); Triglycerides 82 mg/dL (<150)
== END 2025-09-05 08:47 | disposition home or self-care (01) ==
LOC: HO.WFDLDS 08:46
PROVIDERS: PCP Family Medicine; Visit Provider Family Medicine
DX: Z00.00 Encounter for general adult medical examination without abnormal findings (principal); I10 Essential (primary) hypertension; Z12.5 Encounter for screening for malignant neoplasm of prostate
CPT/HCPCS: 36415; 80053; 80061; 81003; 82043; 82570; 84153; 84443; 96127; 99396

== ENCOUNTER 2025-10-06 14:11 | Outpatient (AMB) | payer OTHER, MEDICAID, SELFPAY ==
--- NOTE | 2025-10-06 14:09 | MHC.PC.OV ---
Intake Visit Reasons: f/u CPE-labs via telemedicine Intake Note: Telehealth to review labs. Patient has not received the naproxen prescriptions. Patient is also requesting a letter to be able to have a emotional support dog. Medical Affairs Specialist Required: No Allergies pneumococcal vaccine Allergy (Verified 10/06/25 14:11) Cystitis Medication List - Last Reconciled 10/06/25 by Marin Mora MD albuterol sulfate 90 mcg/actuation (Ventolin HFA) 2 puffs inhalation Q4-6H PRN 30 days cyclobenzaprine 10 mg PO BID PRN 10 days omeprazole 20 mg PO DAILY 90 days Tobacco use date assessed: 10/06/25 Dental Screening Dental Screen Date: 10/06/25 Did you have a dental visit in the last 12 months?: Yes Did you have a dental problem in the last 6 months where you did not have access to dental care?: No Was dental information given to patient?: Patient has dentist HPI f/u CPE-labs via telemedicine HPI Details 49 y/o male presents to f/u labs via telemed. Labs drawn 09/05/25. Reviewed labs with pt. Triglycerides 82. TC 147. LDL 95. HDL low at 36. Hx of seizures, TBI. He is requesting information about a support animal. [facility] Medical History Bradycardia Surgical History History of right knee surgery Family History Other FH: mental illness Substance use Social History Housing: House Patient Tobacco Use Status: Never used Tobacco e-Cigarette/Vaping Use: Never Used Second Hand Smoke Exposure: No Substance Use Type: Marijuana service: No Current occupational status: disabled Current occupational exposures/hazards: No Cognitive needs: Yes (had seven brain injuries) Hearing needs: No Vision needs: Yes (legally blind in right eye) Questionnaire Thrive Questionnaire Date Thrive assessed: 07/29/25 I am a: Patient What is your living situation today?: I have a steady place to live Within the past 12 months, did the food you bought not last and you didn't have the money to get more?: Often true Within the past 12 months, did you worry whether your food would run out before you got money to buy more?: Often true Do you have trouble paying for medicines?: Yes Do you have trouble getting transportation to medical appointments?: Yes Do you have trouble paying your heating and electricity bill?: No Do you have trouble taking care of your child, family member or friend?: No Do you have trouble with day-to-day activities such as bathing, preparing meals, shopping, managing finances, etc.?: No Are you currently unemployed and looking for a job?: No Are you interested in more education?: No Please select the resources that you would like help with: None Currently or been in a relationship where the following occur: I choose not to answer THRIVE Score: 3 BRY-7 AMB Questionnaire BRY-7 Date BRY - 7 assessed: 09/05/25 Source: Developed by Drs. Wilfrid Easton, Maria M Rodriges, Mynor Bautista and colleagues, with an educational asaf from [employer]. Review of Systems Const Denies chills, Denies fatigue, Denies fever(s), Denies headache(s) and Denies weakness ENT Denies dizziness and Denies headache(s) Card Denies dyspnea Resp Denies cough, Denies dyspnea, Denies wheezing and Denies other (shortness of breath) Musc Denies numbness and Denies tingling Neuro Denies dizziness, Denies headache(s), Denies numbness, Denies tingling and Denies weakness Psych Denies anxiety and Denies depression Endo Denies fatigue Aller/Immun Denies wheezing Physical exam (Primary Care) Tobacco/Smoking Status: Tobacco use Status Tobacco use date assessed 10/06/25 10/06/25 14:12 Patient Tobacco Use Status Never used Tobacco 10/06/25 14:12 e-Cigarette/Vaping Use Never Used 10/06/25 14:12 Thrive Assessment: Date of Thrive Assessment Date Thrive assessed 07/29/25 10/06/25 14:12 Currently or been in a relationship where the following occur: I choose not to answer Telehealth Telehealth Telehealth Platform: Telephone Location of provider rendering services: practice address Location of patient: address on file Patient Identification confirmed using: Name, : Yes Telehealth method: voice only Patient verbally consented to treatment: Yes Patient verbally consented to billing insurance company: Yes Patient informed of any privacy concerns related to visit: Yes Minutes spent on Phone/Video with Pt.: 8 Coding Level of Care Code Tele Est Pt Level 2 (37452) Diagnoses Low HDL (under 40) E78.6 Seizures R56.9 History of traumatic brain injury Z87.820 Assessment & Plan Assessment & Plan (1) Low HDL (under 40): Code(s): E78.6 - Lipoprotein deficiency Category: Medical Plan: Mildly low HDL Increase Whitney 3 fatty acids diet Encouraged exercise (2) Seizures: Code(s): R56.9 - Unspecified convulsions Category: Medical (3) History of traumatic brain injury: Code(s): Z87.820 - Personal history of traumatic brain injury Category: Medical Plan TBI and siezure d.o.. Sees Dr Giang Neurology and has appt in late November.and wants support animal. Will to discuss support animal for TBI and seizure disorder as well as emotional support, December. Medications: New naproxen 500 mg PO BID PRN 60 tabs 1RF pain 30 days
== END 2025-10-06 17:05 | disposition home or self-care (01) ==
LOC: HO.HMCFM 14:12
PROVIDERS: PCP Family Medicine; Visit Provider Family Medicine
DX: E78.6 Lipoprotein deficiency (principal); R56.9 Unspecified convulsions; Z87.820 Personal history of traumatic brain injury